=== PATIENT | female | born 1955 | race African-American/Black ===

== ENCOUNTER → 2017-06-09 16:56 | Outpatient (CLI) | payer BC ==
[2015-03-24 14:40] VITALS: BMI 45.7
[~2017-06-09 16:56] MED LIST: ACETAMINOPHEN500 M1 PO; ALDACTONE25 MG PO; ALEVE220 MG PO; ASCORBIC ACID500 MG PO; AVAPRO150 MG PO; EFFEXOR25 MG PO; HYDROCODON-ACE1 EAC7 PO; MAG-OXIDE400 MG PO; PRENATAL COMPLE1 TAB PO; RELAFEN750 MG PO; TOPROL XL25 MG; ULTRAM50 MG PO; VENTOLIN HFA18 GM; VITAMIN B-12500 MC1 PO; VITAMIN D31000 UNIT; ZANAFLEX4 MG PO
== END | disposition home or self-care (01) ==
LOC: D.MAMMO 14:00
DX: Z00.00 Encounter for general adult medical examination without abnormal findings (principal)

== ENCOUNTER → 2017-08-14 09:19 | Outpatient (CLI) | payer BC ==
[2015-03-24 14:40] VITALS: BMI 45.7
== END | disposition home or self-care (01) ==
LOC: D.ECHO 09:19
DX: R07.9 Chest pain, unspecified (principal); R00.2 Palpitations; R06.02 Shortness of breath

== ENCOUNTER → 2017-11-16 19:05 | Outpatient (CLI) | payer BC ==
[2015-03-24 14:40] VITALS: BMI 45.7
[2017-11-16 20:58] LABS: ALT (SGPT) 22 U/L (10-68); CHOL - HDL RATIO 3.1 ratio (2.3-4.1); CHOLESTEROL, TOTAL 193 mg/dL (0-200); CREATINE KINASE 238 UL (21-215); HDL CHOLESTEROL 63 mg/dL (32-96); LDL CHOLESTEROL 100 mg/dL (0-100); LDL-HDL RATIO 1.6 ratio (1.5-3.5); TRIGLYCERIDE 150 mg/dL (30-200)
[2017-11-16 21:00] LABS: CKMB 8.1 U/L (0.0-3.6)
== END | disposition home or self-care (01) ==
LOC: D.LABREF 19:05
PROVIDERS: Internal Medicine Cardiovascular Disease
DX: R07.9 Chest pain, unspecified (principal)

== ENCOUNTER → 2018-01-15 17:40 | Outpatient (CLI) | payer BC ==
[2015-03-24 14:40] VITALS: BMI 45.7
[2018-01-15 18:45] LABS: CHOL - HDL RATIO 2.3 ratio (2.3-4.1); LDL-HDL RATIO 0.7 ratio (1.5-3.5)
== END | disposition home or self-care (01) ==
LOC: D.LABREF 17:40
PROVIDERS: Internal Medicine Cardiovascular Disease
DX: E78.5 Hyperlipidemia, unspecified (principal)

== ENCOUNTER → 2018-01-26 12:36 | Outpatient (CLI) | payer BC ==
[2015-03-24 14:40] VITALS: BMI 45.7
== END | disposition home or self-care (01) ==
LOC: D.MRI 12:36
DX: M43.16 Spondylolisthesis, lumbar region (principal)

== ENCOUNTER → 2018-05-23 07:21 | Outpatient (CLI) | payer BC ==
[2015-03-24 14:40] VITALS: BMI 45.7
== END | disposition home or self-care (01) ==
LOC: D.MRI 07:21
DX: M54.12 Radiculopathy, cervical region (principal)

== ENCOUNTER 2018-07-16 08:00 | Outpatient (CLI) | payer BC ==
[2015-03-24 14:40] VITALS: BMI 45.7
== END 2018-07-16 09:00 | disposition home or self-care (01) ==
LOC: D.MAMMO 08:00
DX: Z12.31 Encounter for screening mammogram for malignant neoplasm of breast (principal)

== ENCOUNTER 2018-09-10 06:30 | Day surgery (SDC) | payer BC ==
[2018-09-07 16:55] LABS: HEMATOCRIT 41.5 % (36.0-48.0); HEMOGLOBIN 13.4 g/dL (12-16); MCHC 32.3 g/dL (31.0-37.0); MEAN PLATELET VOLUME 10.5 fL (7.4-10.4); RBC 4.46 10x6/uL (4.00-5.40); RDW 14.1 % (11.5-14.5); WBC 12.7 10x3/uL (4.8-10.8)
[2018-09-07 17:16] LABS: CALCIUM 8.8 mg/dL (8.5-10.1); CARBON DIOXIDE 24.6 mmol/L (21.0-32.0); CREATININE - SERUM 0.9 mg/dL (0.6-1.3); POTASSIUM - SERUM 4.6 mmol/L (3.5-5.1)
[~2018-09-10] VITALS: Ht 152.4 cm; Wt 102.1 kg
[~2018-09-10 06:30] MED LIST changes: +SYNTHROID75 MCG PO
[2018-09-10] MEDS ORDERED: FUROSEMIDE20 MG PO (07:59)
[2018-09-10] MEDS ORDERED: LIPITOR20 MG PO (08:06)
[2018-09-10] MEDS ORDERED: ZYLOPRIM100 MG PO (08:06)
[2018-09-10] MEDS ORDERED: ULTRAM50 MG PO (08:07)
[2018-09-10] MEDS ORDERED: TART CHERRY PO (08:08)
[2018-09-10] MEDS ORDERED: MECLIZINE HCL25 MG PO (08:09)
[2018-09-10 08:17] VITALS: BP 114/74; Ht 152.4 cm; Wt 102.1 kg
[2018-09-10] MEDS ORDERED: HYDROCODON-ACE1 EA10 PO (09:53)
--- NOTE | 2018-09-10 10:35 | NUR ---
BANDAIDS TO BILATERAL KNEES DUE TO INJECTIONS
--- NOTE | 2018-09-10 10:49 | OP ---
PATIENT NAME: ANA STANTON MEDICAL RECORD: [id number] :57 LOCATION:D.OPS ADMISSION DATE: SURGEON: LEONELA KUMARI MD DATE OF OPERATION: 09/10/2018 PREOPERATIVE DIAGNOSES: 1. Trigger thumb, left thumb. 2. Bilateral knee arthritis. PREOPERATIVE DIAGNOSES: 1. Trigger thumb, left thumb. 2. Bilateral knee arthritis. PROCEDURES: 1. Left trigger thumb release. 2. Bilateral knee cortisone injection. SURGEON: Leonela Kumari MD ANESTHESIA: General. INTRAOPERATIVE COMPLICATIONS: None. SUMMARY OF PATHOLOGIC FINDINGS: There is a very tight A1 chuy of the thumb consistent with preoperative diagnosis of trigger thumb. The patient has known osteoarthritis of bilateral knees. OPERATIVE SUMMARY IN DETAIL: After obtaining the appropriate preoperative orthopedic surgery consent as well as anesthetic consultation, evaluation, and clearance, the patient was brought to the operating room and placed on the operating table in supine position. After adequate general laryngeal mask airway was administered, each knee was prepped and draped in a routine sterile fashion. They were then injected each with 80 mg of Depo-Medrol and 4 cc of 0.25% Marcaine with epinephrine. Bandages were applied. Left upper extremity was then prepped and draped in routine sterile fashion. The arm was elevated and exsanguinated. Tourniquet was inflated to 250 mmHg. Incision was made at the base of the thumb just over the A1 chuy. A1 chuy was identified. Digital nerves were retracted. The A1 chuy was then incised in its entirety. Some flexor tendons were inspected and found to have no tearing, attritional changes only. The wound was irrigated and closed with 4-0 Prolene in routine interrupted fashion. Area was injected with 0.25% Marcaine. Sterile dressings were applied. Tourniquet was deflated. The patient was awakened and taken to recovery room in stable condition. All final needle and sponge counts were correct. TRANSINT:[id number] Voice Confirmation ID: [id number] DOCUMENT ID: [id number] OPERATIVE REPORT [id number] ANA STANTON MD, LEONELA HENDERSON at 1049 CC: [id number] DICTATION DATE: 09/10/18 0951 CIRCULAR HEAD SAW OPERATOR: 09/10/18 1003 [facility] [address] [facility] [place] [address]
--- NOTE | 2018-09-10 12:11 | NUR ---
PT WATCHING TV. FINISHED HER MEAL AND WAITNG FOR FAMILY TO ARRIVE. IV WNL DENIES PAIN AT THIS TIME.
--- NOTE | 2018-09-10 12:33 | NUR ---
IV REMOVED AND PRESSURE HELD BANDAID APPLIED.FAMILY HERE AT BEDSIDE
== END 2018-09-10 12:51 | disposition home or self-care (01) ==
LOC: D.OPS 06:30 → D.PAN 15:15
PROVIDERS: Anesthesiology; ATTEND Orthopaedic Surgery
DX: M65.312 Trigger thumb, left thumb (principal); M17.0 Bilateral primary osteoarthritis of knee; Z01.812 Encounter for preprocedural laboratory examination

== ENCOUNTER → 2019-01-31 17:15 | Outpatient (CLI) | payer BC ==
[2018-09-10 08:17] VITALS: BMI 44.0
[~2019-01-31 17:15] MED LIST changes: +FUROSEMIDE20 MG PO; +HYDROCODON-ACE1 EA10 PO; +LIPITOR20 MG PO; +MECLIZINE HCL25 MG PO; +TART CHERRY PO; +ZYLOPRIM100 MG PO
[2019-01-31 18:08] LABS: CHOL - HDL RATIO 2.7 ratio (2.3-4.1); LDL-HDL RATIO 1.1 ratio (1.5-3.5)
== END | disposition home or self-care (01) ==
LOC: D.LABREF 17:15
PROVIDERS: ATTEND Internal Medicine Interventional Cardiology
DX: E78.5 Hyperlipidemia, unspecified (principal)

== ENCOUNTER → 2019-03-06 13:05 | Outpatient (CLI) | payer BC ==
[2018-09-10 08:17] VITALS: BMI 44.0
--- NOTE | 2019-03-07 14:31 | EC ---
PATIENT:ANA STANTON DATE OF SERVICE: 03/06/19 SEX: F MEDICAL RECORD: [id number] DATE OF : 57 LOCATION:[facility] AGE OF PATIENT: 63 ADMISSION DATE: 03/06/19 REFERRING PHYSICIAN: INTERPRETING PHYSICIAN: MASTER GARCIA MD ECHOCARDIOGRAM REPORT ECHO CHARGES 4 ECHO COMPLETE Date: 03/06/19 CLINICAL DIAGNOSIS: HTN, ASSESS EF AND VALVES ECHOCARDIOGRAPHIC MEASUREMENTS (adult normal given) AC root (d.<3.7cm) 3.5 cm LV Septum d (<1.2 cm> 1.6 cm Valve Excursion 1.6 cm LV Septum (systole) 1.7 cm Left Atria (s.<4.0cm> 4.4 cm LVPW d(<1.2cm) 1.5 cm RV (d.<2.3cm) 3.2 cm LVPW (sytole) 1.8 cm LV diastole(<5.6CM) 4.7 cm MV E-F(>70mm/sec) cm LV systole 3.7 cm LVOT Diameter 1.6 cm MV exc.(>10mm) cm Est.ejection fraction (50-75%) % DOPPLER: LVIT cm/sec A 53.0 cm/sec E 41.0 cm/sec LA cm/sec RVSP 33 mmHg LVOT 104 cm/sec AOP1/2T m/s Asc. Ao 164 cm/sec RVOT 97 cm/sec RA cm/sec PA 136 cm/sec AV Gradient Peak 10.76mmHg AV Mean 6.25 mmHg AV Area 1.4 cm MV Gradient Peak 2.71 mmHg MV Mean 2.12 mmHg MV Area cm COMMENTS: Pouncing Lathe Operator: Fred AKERS Zoning Administrator: 1 Dr. Garcia TAPE# PACS Pericardial Effusion N DATE OF SERVICE: 03/06/2019 FINDINGS: 1. Left ventricular chamber size is within normal limits. Left ventricular systolic function is normal at 60%. 2. Left ventricular hypertrophy is present, concentric with no evidence of outflow tract hypertrophy. 3. Left atrium is enlarged at 4.4 cm. Right atrium and right ventricular chamber sizes are within normal limits. 4. Valvular structures have normal structure and motion. ECHOCARDIOGRAM REPORT [id number] ANA STANTON 5. Doppler interrogation reveals no significant valvular insufficiency or stenosis. Pulmonary systolic pressure is normal estimated 33 mmHg. 6. No evidence of pericardial effusion or left ventricular thrombus. TRANSINT:[id number] Voice Confirmation ID: [id number] DOCUMENT ID: [id number] MASTER GARCIA MD at 1431 CC: [id number] DICTATION DATE: 03/06/19 1716 BOREMATIC OPERATOR: 03/06/19 2357 DEP CLI 03/06/19 [place] [id number] [place] [id number]
== END | disposition home or self-care (01) ==
LOC: D.HCCARDIO 02-08 14:30 → D.HCCECHO 13:05 → D.HCCARDIO 14:30 → D.HCCECHO 14:30
PROVIDERS: ATTEND Internal Medicine Interventional Cardiology
DX: I10 Essential (primary) hypertension (principal)

== ENCOUNTER → 2020-10-07 11:15 | Outpatient (CLI) | payer BC ==
[2018-09-10 08:17] VITALS: BMI 44.0
--- NOTE | ~2020-10-07 | EC ---
PATIENT:ANA STANTON DATE OF SERVICE: 10/07/20 SEX: F MEDICAL RECORD: [id number] DATE OF : 57 LOCATION:[facility] AGE OF PATIENT: 65 ADMISSION DATE: 10/07/20 REFERRING PHYSICIAN: INTERPRETING PHYSICIAN: LEIDA FRANK MD ECHOCARDIOGRAM REPORT ECHO CHARGES 4 ECHO COMPLETE Date: 10/07/20 CLINICAL DIAGNOSIS: CAD/HTN ASSESS EF/LVH/RVH ECHOCARDIOGRAPHIC MEASUREMENTS (adult normal given) AC root (d.<3.7cm) 3.6 cm LV Septum d (<1.2 cm> 1.8 cm Valve Excursion 2.1 cm LV Septum (systole) 2.0 cm Left Atria (s.<4.0cm> 3.4 cm LVPW d(<1.2cm) 1.5 cm RV (d.<2.3cm) 3.2 cm LVPW (sytole) 2.0 cm LV diastole(<5.6CM) 4.9 cm MV E-F(>70mm/sec) cm LV systole 2.5 cm LVOT Diameter 1.8 cm MV exc.(>10mm) cm Est.ejection fraction (50-75%) % DOPPLER: LVIT cm/sec A 79.0 cm/sec E 63.0 cm/sec LA cm/sec RVSP 21 mmHg LVOT 86 cm/sec AOP1/2T m/s Asc. Ao 142 cm/sec RVOT 83 cm/sec RA cm/sec PA 121 cm/sec AV Gradient Peak 8.09 mmHg AV Mean 4.76 mmHg AV Area 1.4 cm MV Gradient Peak 2.93 mmHg MV Mean 1.66 mmHg MV Area cm COMMENTS: Scale Clerk: 2 TIMOTEO AKERS Airconditioning Drafting Officer: 3 Dr. Guevara TAPE# PACS Pericardial Effusion N DATE OF SERVICE: Adequate 2D, color-flow imaging, spectral Doppler, and M-Mode FINDINGS: LVH is present. LV internal dimensions are normal. Wall motion is normal. EF is greater than or equal to 55%. Aortic valve is tricuspid. No evidence of stenosis by Doppler interrogation. Left atrium is normal. Mitral valve shows no prolapse. Trace MR. Right side is grossly normal. Trace TR. TRANSINT:[id number] Voice Confirmation ID: [id number] DOCUMENT ID: [id number] ECHOCARDIOGRAM REPORT [id number] ANA STANTON GREGORY A MD CC: [id number] DICTATION DATE: 10/07/20 1634 BOARDING ROOM FIXER: 10/07/20 2332 [place] [id number] [facility]
== END | disposition home or self-care (01) ==
LOC: D.HCCECHO 11:15
PROVIDERS: ATTEND Internal Medicine Interventional Cardiology
DX: I25.10 Atherosclerotic heart disease of native coronary artery without angina pectoris (principal)